=== PATIENT | male | born 1950 | race Caucasian/White ===

== ENCOUNTER 2020-10-04 09:46 | Emergency (ER) | payer MEDICARE, BC ==
[~2020-10-04] VITALS: Ht 180.3 cm; Wt 72.7 kg
[~2020-10-04 09:46] MED LIST: ASPI-41 PO; DOCU100C40 PO; HYDR-3972 PO; LISI10TA4 PO; METO25TA6 PO
[2020-10-04 10:31] LABS: BASOPHILS % (AUTO) 0.6 % (0-1); EOSINOPHILS # (AUTO) 0.1 X10'3 (0-0.9); EOSINOPHILS % (AUTO) 1.7 % (0-6); HEMATOCRIT 40.6 % (42.0-52.0); HEMOGLOBIN 13.4 g/dl (14.0-17.9); LYMPHOCYTES # (AUTO) 1.2 X10'3 (1.1-4.8); MEAN CORPUSCULAR HEMOGLOBIN 29.5 PG (27.0-31.0); MEAN CORPUSCULAR VOLUME 89.4 FL (78-98); MEAN PLATELET VOLUME 8.6 FL (7.4-10.4); MONOCYTES # (AUTO) 0.8 X10'3 (0-0.9); MONOCYTES % (AUTO) 11.1 % (2-12); NEUTROPHILS # (AUTO) 4.7 X10'3 (1.8-7.7); NEUTROPHILS % (AUTO) 68.6 % (42-75); PLATELET COUNT 200 X10'3 (140-440); RED BLOOD COUNT 4.54 X10'6 (4.70-6.10); RED CELL DISTRIBUTION WIDTH 13.6 % (11.5-14.5); WHITE BLOOD COUNT 6.8 X10'3 (4.5-11.0)
[2020-10-04 10:56] LABS: ALANINE AMINOTRANSFERASE 23 U/L (12-78); ALBUMIN 3.3 G/DL (3.4-5.0); ALBUMIN/GLOBULIN RATIO 0.8 (1.1-1.5); ALKALINE PHOSPHATASE 59 IU/L (46-116); ANION GAP 8 (8-16); ASPARTATE AMINO TRANSFERASE 19 U/L (10-37); BILIRUBIN,TOTAL 0.5 MG/DL (0.1-1.0); BLOOD UREA NITROGEN 15 MG/DL (7-18); BUN/CREATININE RATIO 14.9 (5.4-32.0); CALCIUM 8.9 MG/DL (8.5-10.1); CHLORIDE 109 MMOL/L (99-107); CREATININE 1.01 MG/DL (0.60-1.10); GLUCOSE 78 MG/DL (70-104); POTASSIUM 3.5 MMOL/L (3.5-5.1); SODIUM 146 MMOL/L (135-145); TOTAL CARBON DIOXIDE 29.5 MMOL/L (24-32); TOTAL PROTEIN 7.2 G/DL (6.4-8.2); eGFR 73 ML/MIN
[2020-10-04] MEDS ORDERED: dexamethasone sod phosphate 10mg/ml inj IV STA (11:51)
[2020-10-04] MEDS ORDERED: levetiracetam inj 1,000 MG in normal saline 100ml IV soln 90 ML IV STA (12:11)
[2020-10-04] MEDS ORDERED: pantoprazole 40 MG vial IV ONE (12:15)
[2020-10-04] MEDS ORDERED: levetiracetam-NS 1000mg/100ml 100 ML IV STA (12:18)
--- NOTE | 2020-10-04 12:58 | NUR ---
Pt to MRI via [facility].
--- NOTE | 2020-10-04 13:38 | NUR ---
Pt returned from MRI.
[2020-10-04] MEDS ORDERED: GADOTERATE MEGLUMINE 7.5 MMOL/15 ML VIAL IV ONE (15:01)
--- NOTE | 2020-10-04 15:04 | NUR ---
Pt resting with eyes closed. Pts at bedside and has been updated with plan of care. We are awaiting call from [facility] for possible acceptance of patient.
[2020-10-04 15:34] VITALS: BP 155/69
== END 2020-10-04 16:00 | disposition short-term general hospital (02) ==
LOC: ER 09:47
DX: I50.9 Heart failure, unspecified (principal); R51.9 Headache, unspecified; I11.0 Hypertensive heart disease with heart failure; R53.1 Weakness; Z20.822 Contact with and (suspected) exposure to COVID-19; G45.9 Transient cerebral ischemic attack, unspecified; G93.40 Encephalopathy, unspecified; I25.2 Old myocardial infarction; G93.9 Disorder of brain, unspecified; Z98.890 Other specified postprocedural states; Z79.82 Long term (current) use of aspirin; Z79.899 Other long term (current) drug therapy
CPT/HCPCS: 36415; 70450; 70553; 71045; 80053; 83605; 83880; 84145; 84484; 85025; 85610; 87040; 87635; 93005; 96365; 96375; 99291; 99292; A9575; C9113; C9803; J1100; J1953

== ENCOUNTER 2021-03-14 11:33 | Emergency (ER) | payer MEDICARE, BC ==
[~2021-03-14] VITALS: Ht 180.3 cm; Wt 66.2 kg
[~2021-03-14 11:33] MED LIST changes: +LISI10TA27 PO; -LISI10TA4 PO; +LOP25T PO; -METO25TA6 PO
[2021-03-14 13:19] VITALS: BP 187/103
[2021-03-14] MEDS ORDERED: normal saline 1000ML IV soln IVB ONE (13:25)
[2021-03-14 14:04] LABS: BASOPHILS % (AUTO) 0.8 % (0-1); EOSINOPHILS # (AUTO) 0.1 X10'3 (0-0.9); EOSINOPHILS % (AUTO) 1.5 % (0-6); HEMATOCRIT 42.6 % (42.0-52.0); HEMOGLOBIN 14.5 g/dl (14.0-17.9); LYMPHOCYTES # (AUTO) 0.6 X10'3 (1.1-4.8); LYMPHOCYTES % (AUTO) 13.7 % (21-51); MEAN CORPUSCULAR HGB CONC 34.1 g/dL (33.0-36.5); MEAN CORPUSCULAR VOLUME 85.1 FL (78-98); MEAN PLATELET VOLUME 7.5 FL (7.4-10.4); MONOCYTES # (AUTO) 0.5 X10'3 (0-0.9); MONOCYTES % (AUTO) 12.9 % (2-12); NEUTROPHILS % (AUTO) 71.1 % (42-75); PLATELET COUNT 216 X10'3 (140-440); RED BLOOD COUNT 5.01 X10'6 (4.70-6.10); RED CELL DISTRIBUTION WIDTH 14.3 % (11.5-14.5); WHITE BLOOD COUNT 4.2 X10'3 (4.5-11.0)
[2021-03-14 14:13] LABS: CLARITY,URINE CLOUDY (Clear); COLOR,URINE YELLOW (Yellow); GLUCOSE, URINE NEGATIVE (Neg); KETONES,URINE 40 mg/dl (Neg); LEUKOCYTE ESTERASE ,URINE MODERATE (Neg); NITRITES, URINE POSITIVE (Neg); OCCULT BLOOD,URINE SMALL (Neg); PH,URINE 5.5 (4.8-8.0); PROTEIN,URINE NEGATIVE (Neg)
[2021-03-14 14:17] LABS: UA COLLECTION TYPE CLN CATCH MIDSTREAM
[2021-03-14 14:18] LABS: ALANINE AMINOTRANSFERASE 29 U/L (12-78); ALBUMIN 3.7 G/DL (3.4-5.0); ALKALINE PHOSPHATASE 74 IU/L (46-116); ANION GAP 12 (8-16); ASPARTATE AMINO TRANSFERASE 14 U/L (10-37); BILIRUBIN,TOTAL 0.5 MG/DL (0.1-1.0); BLOOD UREA NITROGEN 7 MG/DL (7-18); CALCIUM 8.7 MG/DL (8.5-10.1); CHLORIDE 92 MMOL/L (99-107); CREATININE 0.87 MG/DL (0.60-1.10); GLUCOSE 86 MG/DL (70-104); LIPASE 101 U/L (73-393); POTASSIUM 3.9 MMOL/L (3.5-5.1); SODIUM 129 MMOL/L (135-145); TOTAL PROTEIN 7.3 G/DL (6.4-8.2); eGFR 87 ML/MIN
[2021-03-14 14:35] LABS: BACTERIA,URINE 4+ /HPF (Neg); WBC,URINE TNTC /HPF (0-4)
[2021-03-14 14:36] LABS: SQUAMOUS EPITHELIAL CELL,UR FEW /LPF (FEW)
[2021-03-14] MEDS ORDERED: cephalexin 250mg capsule PO ONE (16:50)
[2021-03-14] MEDS ORDERED: CEPH-585 PO (16:53)
[2021-03-14] MEDS ORDERED: PROM12.512 PO (17:00)
== END 2021-03-14 20:53 | disposition home or self-care (01) ==
LOC: ER 11:33
DX: N39.0 Urinary tract infection, site not specified (principal); R11.2 Nausea with vomiting, unspecified; I11.0 Hypertensive heart disease with heart failure; I50.9 Heart failure, unspecified; I25.2 Old myocardial infarction; Z86.73 Personal history of transient ischemic attack (TIA), and cerebral infarction without residual deficits; Z86.69 Personal history of other diseases of the nervous system and sense organs; Z98.890 Other specified postprocedural states; Z88.2 Allergy status to sulfonamides; Z79.82 Long term (current) use of aspirin; Z79.2 Long term (current) use of antibiotics; Z79.899 Other long term (current) drug therapy
CPT/HCPCS: 36415; 80053; 81001; 83690; 85025; 87088; 99283

== ENCOUNTER 2021-03-16 20:54 | Observation (INO) | payer MEDICARE, BC ==
[~2021-03-16] VITALS: Ht 180.3 cm; Wt 65.0 kg
[~2021-03-16 20:54] MED LIST changes: +CEPH-585 PO; +PROM12.512 PO
[2021-03-16] MEDS ORDERED: LISI10TA27 PO (21:31)
[2021-03-16] MEDS ORDERED: OXCA600T5 PO (21:31)
[2021-03-16] MEDS ORDERED: LEVE250T4 PO (21:31)
[2021-03-16] MEDS ORDERED: ONDA4TAB6 PO (21:31)
[2021-03-16] MEDS ORDERED: FLUC200T28 PO (21:33)
[2021-03-16] MEDS ORDERED: LEVE750T66 PO (21:35)
[2021-03-16 21:49] LABS: BASOPHILS # (AUTO) 0.1 X10'3 (0-0.2); BASOPHILS % (AUTO) 0.9 % (0-1); EOSINOPHILS # (AUTO) 0.2 X10'3 (0-0.9); EOSINOPHILS % (AUTO) 1.7 % (0-6); HEMOGLOBIN 14.9 g/dl (14.0-17.9); LYMPHOCYTES # (AUTO) 0.9 X10'3 (1.1-4.8); MEAN CORPUSCULAR HEMOGLOBIN 28.8 PG (27.0-31.0); MEAN CORPUSCULAR HGB CONC 33.8 g/dL (33.0-36.5); MEAN CORPUSCULAR VOLUME 85.3 FL (78-98); MEAN PLATELET VOLUME 7.6 FL (7.4-10.4); MONOCYTES # (AUTO) 0.9 X10'3 (0-0.9); MONOCYTES % (AUTO) 9.7 % (2-12); NEUTROPHILS # (AUTO) 7.2 X10'3 (1.8-7.7); NEUTROPHILS % (AUTO) 77.7 % (42-75); PLATELET COUNT 235 X10'3 (140-440); RED BLOOD COUNT 5.16 X10'6 (4.70-6.10); RED CELL DISTRIBUTION WIDTH 14.7 % (11.5-14.5); WHITE BLOOD COUNT 9.3 X10'3 (4.5-11.0)
[2021-03-16 21:56] LABS: PARTIAL THROMBOPLASTIN TIME 25 SECONDS (22-32)
[2021-03-16 22:20] LABS: ALANINE AMINOTRANSFERASE 25 U/L (12-78); ALBUMIN 3.7 G/DL (3.4-5.0); ALBUMIN/GLOBULIN RATIO 1.1 (1.1-1.5); ALKALINE PHOSPHATASE 76 IU/L (46-116); ANION GAP 6 (8-16); ASPARTATE AMINO TRANSFERASE 11 U/L (10-37); BILIRUBIN,TOTAL 0.4 MG/DL (0.1-1.0); BLOOD UREA NITROGEN 11 MG/DL (7-18); BUN/CREATININE RATIO 8.9 (5.4-32.0); CALCIUM 9.2 MG/DL (8.5-10.1); CHLORIDE 92 MMOL/L (99-107); CREATININE 1.24 MG/DL (0.60-1.10); GLUCOSE 132 MG/DL (70-104); POTASSIUM 3.2 MMOL/L (3.5-5.1); SODIUM 128 MMOL/L (135-145); TOTAL CARBON DIOXIDE 29.8 MMOL/L (24-32); TOTAL PROTEIN 7.2 G/DL (6.4-8.2); TROPONIN I < 0.04 NG/ML (0.0-0.05); eGFR 58 ML/MIN
[2021-03-17 00:54] LABS: CLARITY,URINE CLEAR (Clear); COLOR,URINE YELLOW (Yellow); GLUCOSE, URINE NEGATIVE (Neg); KETONES,URINE 15 mg/dl (Neg); LEUKOCYTE ESTERASE ,URINE TRACE (Neg); NITRITES, URINE NEGATIVE (Neg); OCCULT BLOOD,URINE NEGATIVE (Neg); PH,URINE 5.5 (4.8-8.0); PROTEIN,URINE TRACE mg/dl (Neg)
[2021-03-17 00:58] LABS: UA COLLECTION TYPE STRAIGHT CATH
[2021-03-17 01:03] LABS: BACTERIA,URINE FEW /HPF (Neg); RBC,URINE NONE SEEN /HPF (0-2); SQUAMOUS EPITHELIAL CELL,UR FEW /LPF (FEW)
[2021-03-17 01:04] LABS: HYALINE CASTS 0-3 /LPF (NEGATIVE); MUCUS STRANDS FEW /LPF (Neg)
[2021-03-17] MEDS ORDERED: potassium Cl 40MEQ/1/2NS 520ml 520 ML IV PRN ×2 (01:15)
[2021-03-17] MEDS ORDERED: ondansetron/PF 4mg/2ml inj IV PRN (01:15)
[2021-03-17] MEDS ORDERED: levetiracetam inj 1,000 MG in normal saline 100ml IV soln 90 ML IV ONE (01:25)
[2021-03-17] MEDS: normal saline 1000ml 1,000 ML IV SCH ×3 (01:56→11:51)
--- NOTE | 2021-03-17 03:40 | NUR ---
Patient transferred to hospital bed- tolerated well. IV fluids infusing without difficulty.
[2021-03-17] MEDS: K and/or MAG REPLACEMENT MC SCH ×2 (08:00→20:00)
[2021-03-17] MEDS: levetiracetam 250mg tablet PO SCH ×2 (08:39→20:13)
[2021-03-17] MEDS: docusate sod 100mg capsule PO SCH ×2 (08:39→20:12)
[2021-03-17] MEDS: cephalexin 500mg capsule PO SCH ×2 (08:39→20:50)
[2021-03-17] MEDS: fluconazole 100mg tablet PO SCH (08:40)
[2021-03-17] MEDS: oxcarbazepine 150mg tablet PO SCH ×2 (09:26→20:51)
--- NOTE | 2021-03-17 09:35 | NUR ---
SPOKE WITH DR AGUIRRE AND CHAO TO ADD HOME DOSE OF LISINOPRIL. SPOKE WITH PT REGARDING HOME DOSE. PT DAUGHTER STATED HE TAKES LISINOPRIL 10MG QHS. WILL ADD FOR TONIGHT.
[2021-03-17] MEDS ORDERED: potassium Cl 20 mEq SR tablet PO PRN (09:40)
[2021-03-17] MEDS: potassium Cl 20 mEq SR tablet PO PRN ×3 (10:04→20:12)
--- NOTE | 2021-03-17 14:25 | NUR ---
Patient in room ED 4. I have received report from Hunter CAMP and had the opportunity to ask questions and assume patient care.
--- NOTE | 2021-03-17 14:55 | NUR ---
Page Sent PAGER ID: [phone] MESSAGE: Torum, pt has an MRI schedule and gets claustrophobic should we get some Ativan? thanks yulia [phone]
[2021-03-17 15:08] VITALS: BP 145/73
--- NOTE | 2021-03-17 15:27 | NUR ---
PAGER ID: [phone] MESSAGE: [id number], Chintan just got here from ED. Needs MRI and is claustrophobic, need ativan order please. amira [phone]
[2021-03-17] MEDS ORDERED: LORazepam 2 mg/ml vial IV ONE (17:00)
[2021-03-17 18:00] VITALS: BP 177/86
--- NOTE | 2021-03-17 18:00 | NUR ---
Patient in room [facility]THO 4022. I have received report from CONRADO Dow and had the opportunity to ask questions and assume patient care.
--- NOTE | 2021-03-17 18:13 | NUR ---
Problems reprioritized. Patient report given, questions answered & plan of care reviewed with Emeli CAMP.
[2021-03-17 19:23] VITALS: BP 163/79
[2021-03-17] MEDS: lactobacillus rhamnosus 10,000 MMU CELLS/CAPSULE PO SCH (20:12)
[2021-03-17] MEDS ORDERED: lisinopril 10 MG tablet PO ONE (21:00)
[2021-03-17 22:00] VITALS: BP 144/71
[2021-03-17] MEDS: LORazepam 1 MG tablet PO PRN (23:17)
--- NOTE | 2021-03-18 06:44 | NUR ---
Problems reprioritized. Patient report given, questions answered & plan of care reviewed with CONRADO Hardy.
[2021-03-18] MEDS: normal saline 1000ml 1,000 ML IV SCH (07:15)
[2021-03-18] MEDS: cephalexin 500mg capsule PO SCH (07:52)
[2021-03-18] MEDS: levetiracetam 250mg tablet PO SCH (07:52)
[2021-03-18] MEDS: lactobacillus rhamnosus 10,000 MMU CELLS/CAPSULE PO SCH (07:52)
[2021-03-18] MEDS: docusate sod 100mg capsule PO SCH (07:52)
[2021-03-18] MEDS: oxcarbazepine 150mg tablet PO SCH (07:53)
[2021-03-18] MEDS: fluconazole 100mg tablet PO SCH (07:53)
[2021-03-18] MEDS: K and/or MAG REPLACEMENT MC SCH (08:00)
[2021-03-18 08:38] LABS: BASOPHILS % (AUTO) 0.7 % (0-1); EOSINOPHILS # (AUTO) 0.2 X10'3 (0-0.9); EOSINOPHILS % (AUTO) 4.1 % (0-6); HEMATOCRIT 42.6 % (42.0-52.0); HEMOGLOBIN 14.5 g/dl (14.0-17.9); LYMPHOCYTES # (AUTO) 0.6 X10'3 (1.1-4.8); LYMPHOCYTES % (AUTO) 13.5 % (21-51); MEAN CORPUSCULAR HEMOGLOBIN 28.9 PG (27.0-31.0); MEAN CORPUSCULAR HGB CONC 34.2 g/dL (33.0-36.5); MEAN CORPUSCULAR VOLUME 84.6 FL (78-98); MEAN PLATELET VOLUME 7.5 FL (7.4-10.4); MONOCYTES # (AUTO) 0.4 X10'3 (0-0.9); MONOCYTES % (AUTO) 8.8 % (2-12); NEUTROPHILS # (AUTO) 3.4 X10'3 (1.8-7.7); NEUTROPHILS % (AUTO) 72.9 % (42-75); PLATELET COUNT 172 X10'3 (140-440); RED BLOOD COUNT 5.03 X10'6 (4.70-6.10); RED CELL DISTRIBUTION WIDTH 14.8 % (11.5-14.5); WHITE BLOOD COUNT 4.7 X10'3 (4.5-11.0)
[2021-03-18 08:55] LABS: ALANINE AMINOTRANSFERASE 29 U/L (12-78); ALBUMIN 3.1 G/DL (3.4-5.0); ALKALINE PHOSPHATASE 67 IU/L (46-116); ANION GAP 7 (8-16); ASPARTATE AMINO TRANSFERASE 15 U/L (10-37); BILIRUBIN,TOTAL 0.3 MG/DL (0.1-1.0); BLOOD UREA NITROGEN 4 MG/DL (7-18); BUN/CREATININE RATIO 4.6 (5.4-32.0); CALCIUM 8.6 MG/DL (8.5-10.1); CHLORIDE 100 MMOL/L (99-107); CREATININE 0.87 MG/DL (0.60-1.10); GLUCOSE 134 MG/DL (70-104); POTASSIUM 3.5 MMOL/L (3.5-5.1); SODIUM 135 MMOL/L (135-145); TOTAL CARBON DIOXIDE 27.6 MMOL/L (24-32); TOTAL PROTEIN 6.2 G/DL (6.4-8.2); eGFR 87 ML/MIN
[2021-03-18] MEDS ORDERED: levetiracetam 250mg tablet PO SCH (11:37)
[2021-03-18] MEDS: LORazepam 1 MG tablet PO PRN (12:46)
[2021-03-18] MEDS ORDERED: GADOTERATE MEGLUMINE 7.5 MMOL/15 ML VIAL IV ONE (14:02)
== END 2021-03-18 16:10 | disposition home or self-care (01) ==
LOC: ER 20:55 → ED HOLD 03-17 01:13 → ORTHO 4S 03-17 14:30
PROVIDERS: ADMIT Internal Medicine; ATTEND Internal Medicine
DX: G40.919 Epilepsy, unspecified, intractable, without status epilepticus (principal); E11.9 Type 2 diabetes mellitus without complications; E87.1 Hypo-osmolality and hyponatremia; E87.6 Hypokalemia; G45.9 Transient cerebral ischemic attack, unspecified; I25.10 Atherosclerotic heart disease of native coronary artery without angina pectoris; I25.2 Old myocardial infarction; I11.0 Hypertensive heart disease with heart failure; I50.9 Heart failure, unspecified; J44.9 Chronic obstructive pulmonary disease, unspecified; N17.9 Acute kidney failure, unspecified; G51.0 Bell's palsy; G93.41 Metabolic encephalopathy; Z85.841 Personal history of malignant neoplasm of brain; Z86.73 Personal history of transient ischemic attack (TIA), and cerebral infarction without residual deficits; Z95.1 Presence of aortocoronary bypass graft; Z87.891 Personal history of nicotine dependence; Z79.01 Long term (current) use of anticoagulants
CPT/HCPCS: 36415; 70450; 70553; 71045; 80053; 81001; 84484; 85025; 85610; 85730; 87081; 87088; 93005; 96361; 96365; 96366; 96375; 97116; 97161; 97530; 99285; A9575; G0378; J1953; J2405; J7030

== ENCOUNTER 2021-03-30 13:33 | Emergency (ER) | payer MEDICARE, BC ==
[~2021-03-30] VITALS: Ht 177.8 cm; Wt 68.0 kg
[~2021-03-30 13:33] MED LIST changes: -ASPI-41 PO; +FLUC200T28 PO; -HYDR-3972 PO; +LEVE750T66 PO; -LOP25T PO; +ONDA4TAB6 PO; +OXCA600T5 PO; -PROM12.512 PO
[2021-03-30 15:26] LABS: BASOPHILS % (AUTO) 0.7 % (0-1); EOSINOPHILS # (AUTO) 0.1 X10'3 (0-0.9); EOSINOPHILS % (AUTO) 1.2 % (0-6); HEMOGLOBIN 13.3 g/dl (14.0-17.9); LYMPHOCYTES # (AUTO) 0.5 X10'3 (1.1-4.8); LYMPHOCYTES % (AUTO) 8.9 % (21-51); MEAN CORPUSCULAR HEMOGLOBIN 29.2 PG (27.0-31.0); MEAN CORPUSCULAR HGB CONC 34.1 g/dL (33.0-36.5); MEAN CORPUSCULAR VOLUME 85.7 FL (78-98); MONOCYTES # (AUTO) 0.5 X10'3 (0-0.9); MONOCYTES % (AUTO) 8.9 % (2-12); NEUTROPHILS # (AUTO) 4.2 X10'3 (1.8-7.7); NEUTROPHILS % (AUTO) 80.3 % (42-75); PLATELET COUNT 200 X10'3 (140-440); RED BLOOD COUNT 4.56 X10'6 (4.70-6.10); RED CELL DISTRIBUTION WIDTH 14.4 % (11.5-14.5); WHITE BLOOD COUNT 5.2 X10'3 (4.5-11.0)
[2021-03-30 15:45] VITALS: BP 124/84
[2021-03-30 15:49] LABS: ALANINE AMINOTRANSFERASE 46 U/L (12-78); ALBUMIN 3.7 G/DL (3.4-5.0); ALBUMIN/GLOBULIN RATIO 1.2 (1.1-1.5); ALKALINE PHOSPHATASE 64 IU/L (46-116); ANION GAP 9 (8-16); ASPARTATE AMINO TRANSFERASE 18 U/L (10-37); BILIRUBIN,TOTAL 0.5 MG/DL (0.1-1.0); BLOOD UREA NITROGEN 10 MG/DL (7-18); BUN/CREATININE RATIO 11.6 (5.4-32.0); CALCIUM 8.9 MG/DL (8.5-10.1); CHLORIDE 98 MMOL/L (99-107); CREATININE 0.86 MG/DL (0.60-1.10); GLUCOSE 104 MG/DL (70-104); MAGNESIUM 1.9 MG/DL (1.5-2.4); POTASSIUM 3.6 MMOL/L (3.5-5.1); SODIUM 134 MMOL/L (135-145); TOTAL CARBON DIOXIDE 26.6 MMOL/L (24-32); TOTAL PROTEIN 6.9 G/DL (6.4-8.2); eGFR 88 ML/MIN
[2021-03-30] MEDS ORDERED: oxcarbazepine 150mg tablet PO ONE (16:20)
[2021-03-30] MEDS ORDERED: [UNRECOGNIZED DRUG - CODE] INH (21:47)
[2021-03-30] MEDS ORDERED: DEXA4TAB67 PO (22:33)
== END 2021-03-30 17:53 | disposition home or self-care (01) ==
LOC: ER 13:33
DX: G40.909 Epilepsy, unspecified, not intractable, without status epilepticus (principal); R56.9 Unspecified convulsions; R53.1 Weakness; K59.00 Constipation, unspecified; I50.9 Heart failure, unspecified; I11.0 Hypertensive heart disease with heart failure; I25.2 Old myocardial infarction; Z86.73 Personal history of transient ischemic attack (TIA), and cerebral infarction without residual deficits; Z86.69 Personal history of other diseases of the nervous system and sense organs; Z98.890 Other specified postprocedural states; Z88.2 Allergy status to sulfonamides; Z79.2 Long term (current) use of antibiotics; Z79.899 Other long term (current) drug therapy
CPT/HCPCS: 36415; 80053; 80183; 83735; 85025; 99283

== ENCOUNTER 2021-03-30 18:48 | Emergency (ER) | payer MEDICARE, BC ==
[~2021-03-30] VITALS: Ht 180.3 cm; Wt 70.0 kg
[2021-03-30 19:25] VITALS: BP 142/76
--- NOTE | 2021-03-30 20:00 | NUR ---
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
[2021-03-30] MEDS ORDERED: MIDAZolam 5mg/ml 2ml vial IV ONE (21:20)
[2021-03-30] MEDS ORDERED: [UNRECOGNIZED DRUG - CODE] INH (21:47)
[2021-03-30] MEDS ORDERED: dexamethasone sod phosphate 10mg/ml inj IV STA (21:55)
[2021-03-30] MEDS ORDERED: DEXA4TAB67 PO (22:33)
== END 2021-03-30 23:05 ==
LOC: ER 18:50
DX: C71.9 Malignant neoplasm of brain, unspecified (principal); R56.9 Unspecified convulsions; I50.9 Heart failure, unspecified; I11.0 Hypertensive heart disease with heart failure; I25.2 Old myocardial infarction; Z86.73 Personal history of transient ischemic attack (TIA), and cerebral infarction without residual deficits; Z86.69 Personal history of other diseases of the nervous system and sense organs; Z98.890 Other specified postprocedural states; Z88.2 Allergy status to sulfonamides; Z79.2 Long term (current) use of antibiotics; Z79.899 Other long term (current) drug therapy
CPT/HCPCS: 70450; 95816; 96374; 96375; 99285; J1100; J2250